=== PATIENT | female | born 1960 | race American Indian/Alaskan Native ===

== ENCOUNTER 2019-01-09 12:53 | Emergency (ER) | payer BC ==
--- NOTE | 2019-01-09 13:34 | Event Note ---
Date: 01/09/19 Medical screening examination: Pleasant 58-year-old female with reported history of dementia, sent to the ER for agitated behavior. Patient believes that she is in [place], [place]. She is disorganized and confused. She is not physically violent here in the ER. This is most likely an underlying manifestation of chronic dementia. Laboratory studies, EKG, urinalysis, noncontrast CT scan of the brain ordered, case management consultation is requested. Awake and alert to name, follows commands, protecting airway, hemodynamically stable, moving 4 extremities without difficulty. Vital Signs 01/09/19 13:26 Temperature 98.4 F Pulse Rate 81 Respiratory 14 Rate Blood Pressure 146/91 [Right] O2 Sat by Pulse 100 Oximetry
[2019-01-09] MEDS ORDERED: LORazepam 2 MG/ML VIAL IM ONE (14:23)
--- NOTE | 2019-01-09 16:18 | Emergency Department Report ---
ED Psych HPI - General Chief Complaint: Altered Mental Status Stated Complaint: PSYCH EVAL Time Seen by Provider: 01/09/19 14:34 Source: EMS Mode of arrival: Ambulatory Limitations: Altered Mental Status - History of Present Illness Initial Comments: 58-year-old female the past medical history of Alzheimer's dementia and arthritis presents to the hospital for mental health evaluation. Patient resides at a long-term it was sent for being violent and combative with staff. As per physician's medical evaluation for assisted living patient's mental he alth limitations include mild or moderate memory loss, since a direction, date and year deficits. Other than that she isn't dependent with her ADLs at her baseline. Patient denies any complaints currently. She knows she is in a hospital but does not know the year. She states she recently received a call from her spine who states that her sister is in the hospital. Patient is trying to visit her sister in the hospital however, she does not know what hospital sister is admitted to. Patient also states that another sister of hers almost a long-term and they have been having some conflict. Patient does come with a note written by Felipe Marroquin, the sister Orquidea Church and states that she gave the caretakers of relief with personal- penitentiary authority to send her to the hospital because she is disturbing of the patient's, tearing up her room, etc - Related Data Home Medications Medication Instructions Recorded Confirmed Last Taken Calcium 600 with Vit D Chew Tb 600 mg PO DAILY 01/09/19 01/09/19 Unknown Donepezil [Aricept] 10 mg PO QHS 01/09/19 01/09/19 Unknown Fish Oil 500 mg Softgel 1,000 mg PO BID 01/09/19 01/09/19 Unknown Hydroxyzine HCl [hydrOXYzine] 50 mg PO QHS 01/09/19 01/09/19 Unknown Meloxicam [Mobic] 15 mg PO DAILY 01/09/19 01/09/19 Unknown Memantine 5 mg PO BID 01/09/19 01/09/19 Unknown Venlafaxine [Effexor] 75 mg PO BID 01/09/19 01/09/19 Unknown Vitamin B-12 100 mcg PO DAILY 01/09/19 01/09/19 Unknown Allergies Allergy/AdvReac Type Severity Reaction Status Date / Time shellfish derived Allergy Unknown Verified 01/09/19 14:12 lactose AdvReac Diarrhea Verified 01/09/19 14:12 ED Review of Systems ROS: Stated complaint: PSYCH EVAL Other details as noted in HPI ED Past Medical Hx - Social History Smoking Status: Never Smoker Substance Use Type: None - Medications Home Medications: Home Medications Medication Instructions Recorded Confirmed Last Taken Type Calcium 600 with Vit D Chew Tb 600 mg PO DAILY 01/09/19 01/09/19 Unknown History Donepezil [Aricept] 10 mg PO QHS 01/09/19 01/09/19 Unknown History Fish Oil 500 mg Softgel 1,000 mg PO BID 01/09/19 01/09/19 Unknown History Hydroxyzine HCl [hydrOXYzine] 50 mg PO QHS 01/09/19 01/09/19 Unknown History Meloxicam [Mobic] 15 mg PO DAILY 01/09/19 01/09/19 Unknown History Memantine 5 mg PO BID 01/09/19 01/09/19 Unknown History Venlafaxine [Effexor] 75 mg PO BID 01/09/19 01/09/19 Unknown History Vitamin B-12 100 mcg PO DAILY 01/09/19 01/09/19 Unknown History ED Physical Exam - General Limitations: Altered Mental Status - Other Other exam information: General: No acute distress Head: Atraumatic Eyes: normal appearance ENT: Moist mucous membranes Neck: Normal appearance, no midline tenderness Chest: Clear to auscultation bilaterally CV: Regular rate and rhythm Abdomen: Soft, normal bowel sounds, nontender, nondistended, no rebound or guarding Back: Normal inspection Extremity: Normal inspection infection, full range of motion Neuro: Alert to self and knows she is in the hospital, no facial asymmetry, speech clear, no gross motor sensory deficit Psych: Delusions, confused, agitation Skin: No rash ED Course Vital Signs 01/09/19 01/09/19 13:26 19:26 Temperature 98.4 F 97.7 F Pulse Rate 81 83 Respiratory 14 18 Rate Blood Pressure 146/91 146/83 [Right] O2 Sat by Pulse 100 20 L Oximetry - Reevaluation(s) Reevaluation #1: 01/09/19 16:23 Patient is constantly wandering internal leave the department time to find her sister. She required seclusion and IM Ativan for her safety and cooperation ED Medical Decision Making - Lab Data Result diagrams: 01/09/19 16:19 01/09/19 16:19 Lab Results 01/09/19 01/09/19 01/09/19 Range/Units 16:19 16:19 16:19 WBC 5.8 (4.5-11.0) K/mm3 RBC 4.52 (3.65-5.03) M/mm3 Hgb 13.0 (10.1-14.3) gm/dl Hct 39.4 (30.3-42.9) % MCV 87 (79-97) fl MCH 29 (28-32) pg MCHC 33 (30-34) % RDW 13.4 (13.2-15.2) % Plt Count 246 (140-440) K/mm3 Sodium 139 (137-145) mmol/L Potassium 3.5 L (3.6-5.0) mmol/L Chloride 101.2 (98-107) mmol/L Carbon Dioxide 21 L (22-30) mmol/L Anion Gap 20 mmol/L BUN 16 (7-17) mg/dL Creatinine 1.0 (0.7-1.2) mg/dL Estimated GFR > 60 ml/min BUN/Creatinine Ratio 16 % Glucose 86 (65-100) mg/dL Calcium 10.1 (8.4-10.2) mg/dL Magnesium 2.10 (1.7-2.3) mg/dL Total Bilirubin 0.30 (0.1-1.2) mg/dL AST 22 (5-40) units/L ALT 13 (7-56) units/L Alkaline Phosphatase 40 (35-129) units/L Total Creatine Kinase 153 H (30-135) units/L Total Protein 7.9 (6.3-8.2) g/dL Albumin 4.6 (3.9-5) g/dL Albumin/Globulin Ratio 1.4 % TSH 3.240 (0.270-4.200) mlU/mL Urine Color (Yellow) Urine Turbidity (Clear) Urine pH (5.0-7.0) Ur Specific Thayer (1.003-1.030) Urine Protein (Negative) mg/dL Urine Glucose (UA) (Negative) mg/dL Urine Ketones (Negative) mg/dL Urine Blood (Negative) Urine Nitrite (Negative) Urine Bilirubin (Negative) Urine Urobilinogen (<2.0) mg/dL Ur Leukocyte Esterase (Negative) Urine WBC (Auto) (0.0-6.0) /HPF Urine RBC (Auto) (0.0-6.0) /HPF U Epithel Cells (Auto) (0-13.0) /HPF Urine Mucus /HPF Salicylates (2.8-20.0) mg/dL Urine Opiates Screen Urine Methadone Screen Acetaminophen (10.0-30.0) ug/mL Ur Barbiturates Screen Ur Phencyclidine Scrn Ur Amphetamines Screen U Benzodiazepines Scrn Urine Cocaine Screen U Marijuana (THC) Screen Plasma/Serum Alcohol (0-0.07) % 01/09/19 01/09/19 01/09/19 Range/Units 16:19 16:19 16:19 WBC (4.5-11.0) K/mm3 RBC (3.65-5.03) M/mm3 Hgb (10.1-14.3) gm/dl Hct (30.3-42.9) % MCV (79-97) fl MCH (28-32) pg MCHC (30-34) % RDW (13.2-15.2) % Plt Count (140-440) K/mm3 Sodium (137-145) mmol/L Potassium (3.6-5.0) mmol/L Chloride (98-107) mmol/L Carbon Dioxide (22-30) mmol/L Anion Gap mmol/L BUN (7-17) mg/dL Creatinine (0.7-1.2) mg/dL Estimated GFR ml/min BUN/Creatinine Ratio % Glucose (65-100) mg/dL Calcium (8.4-10.2) mg/dL Magnesium (1.7-2.3) mg/dL Total Bilirubin (0.1-1.2) mg/dL AST (5-40) units/L ALT (7-56) units/L Alkaline Phosphatase (35-129) units/L Total Creatine Kinase (30-135) units/L Total Protein (6.3-8.2) g/dL Albumin (3.9-5) g/dL Albumin/Globulin Ratio % TSH (0.270-4.200) mlU/mL Urine Color (Yellow) Urine Turbidity (Clear) Urine pH (5.0-7.0) Ur Specific Thayer (1.003-1.030) Urine Protein (Negative) mg/dL Urine Glucose (UA) (Negative) mg/dL Urine Ketones (Negative) mg/dL Urine Blood (Negative) Urine Nitrite (Negative) Urine Bilirubin (Negative) Urine Urobilinogen (<2.0) mg/dL Ur Leukocyte Esterase (Negative) Urine WBC (Auto) (0.0-6.0) /HPF Urine RBC (Auto) (0.0-6.0) /HPF U Epithel Cells (Auto) (0-13.0) /HPF Urine Mucus /HPF Salicylates < 0.3 L (2.8-20.0) mg/dL Urine Opiates Screen Urine Methadone Screen Acetaminophen < 5.0 L (10.0-30.0) ug/mL Ur Barbiturates Screen Ur Phencyclidine Scrn Ur Amphetamines Screen U Benzodiazepines Scrn Urine Cocaine Screen U Marijuana (THC) Screen Plasma/Serum Alcohol < 0.01 (0-0.07) % 01/09/19 01/09/19 Range/Units 22:37 22:37 WBC (4.5-11.0) K/mm3 RBC (3.65-5.03) M/mm3 Hgb (10.1-14.3) gm/dl Hct (30.3-42.9) % MCV (79-97) fl MCH (28-32) pg MCHC (30-34) % RDW (13.2-15.2) % Plt Count (140-440) K/mm3 Sodium (137-145) mmol/L Potassium (3.6-5.0) mmol/L Chloride (98-107) mmol/L Carbon Dioxide (22-30) mmol/L Anion Gap mmol/L BUN (7-17) mg/dL Creatinine (0.7-1.2) mg/dL Estimated GFR ml/min BUN/Creatinine Ratio % Glucose (65-100) mg/dL Calcium (8.4-10.2) mg/dL Magnesium (1.7-2.3) mg/dL Total Bilirubin (0.1-1.2) mg/dL AST (5-40) units/L ALT (7-56) units/L Alkaline Phosphatase (35-129) units/L Total Creatine Kinase (30-135) units/L Total Protein (6.3-8.2) g/dL Albumin (3.9-5) g/dL Albumin/Globulin Ratio % TSH (0.270-4.200) mlU/mL Urine Color Yellow (Yellow) Urine Turbidity Clear (Clear) Urine pH 6.0 (5.0-7.0) Ur Specific Thayer 1.012 (1.003-1.030) Urine Protein <15 mg/dl (Negative) mg/dL Urine Glucose (UA) Neg (Negative) mg/dL Urine Ketones Tr (Negative) mg/dL Urine Blood Neg (Negative) Urine Nitrite Neg (Negative) Urine Bilirubin Neg (Negative) Urine Urobilinogen < 2.0 (<2.0) mg/dL Ur Leukocyte Esterase Neg (Negative) Urine WBC (Auto) 1.0 (0.0-6.0) /HPF Urine RBC (Auto) 1.0 (0.0-6.0) /HPF U Epithel Cells (Auto) < 1.0 (0-13.0) /HPF Urine Mucus Few /HPF Salicylates (2.8-20.0) mg/dL Urine Opiates Screen Presumptive negative Urine Methadone Screen Presumptive negative Acetaminophen (10.0-30.0) ug/mL Ur Barbiturates Screen Presumptive negative Ur Phencyclidine Scrn Presumptive negative Ur Amphetamines Screen Presumptive negative U Benzodiazepines Scrn Presumptive negative Urine Cocaine Screen Presumptive negative U Marijuana (THC) Screen Presumptive negative Plasma/Serum Alcohol (0-0.07) % - EKG Data -: EKG Interpreted by Pr EKG shows normal: sinus rhythm, ST-T waves Rate: normal - Radiology Data Radiology results: report reviewed CT BRAIN: 01/09/2019 INDICATION / CLINICAL INFORMATION: ams. COMPARISON: None available. FINDINGS: BRAIN/INTRACRANIAL STRUCTURES: Unenhanced CT images of the brain demonstrate no evidence of acute intracranial abnormality. Ventricles and sulci are slightly prominent in size for a patient of this age, consistent with mild cerebral atrophy. There is no evidence of hemorrhage or mass. There are no abnormal extra-axial fluid collections. EXTRACRANIAL STRUCTURES: Unremarkable. IMPRESSION: No acute abnormality. - Medical Decision Making Patient was not cooperative in the ED. Repeatedly trying to leave the department. Noncompliant with CT head for medical clearance. Patient required IM Ativan followed by Gael and noted to obtain necessary studies for medical clearance. Patient was initially placed in seclusion due to behavior but seclusion was discontinued once sedated on meds. ED evaluation unremarkable for acute medical illness. Patient will require psych evaluation for stabilization of her dementia. - Differential Diagnosis dementia, delirium, encephalopathy Critical Care Time: No Critical care attestation.: If time is entered above; I have spent that time in minutes in the direct care of this critically ill patient, excluding procedure time. ED Disposition Clinical Impression: Dementia, Combative behavior, Medical clearance for psychiatric admission Disposition: [id number] PSY HOSP/PSY UNIT Is pt being admited?: No Condition: Stable Time of Disposition: 23:51
[2019-01-09 16:48] LABS: Hematocrit 39.4 % (30.3-42.9); Mean Corpuscular HGB Conc 33 % (30-34); Mean Corpuscular Volume 87 fl (79-97); Platelet Count 246 K/mm3 (140-440); Red Blood Count 4.52 M/mm3 (3.65-5.03); Red Cell Distribution Width 13.4 % (13.2-15.2)
[2019-01-09 16:58] LABS: Alanine Aminotransferase 13 units/L (7-56); Albumin 4.6 g/dL (3.9-5); BUN/Creatinine Ratio 16; Blood Urea Nitrogen 16 mg/dL (7-17); Calcium 10.1 mg/dL (8.4-10.2); Hemolysis Index 22
[2019-01-09] MEDS ORDERED: ZIPRASIDONE MESYLATE 20 MG VIAL IM ONE ×2 (17:12→17:15)
[2019-01-09] MEDS ORDERED: WATER FOR INJ Sterile (PF) 10 ML ONE (17:15)
--- NOTE | 2019-01-09 20:05 | Cat Scan Report ---
CT BRAIN: 01/09/2019 INDICATION / CLINICAL INFORMATION: ams. COMPARISON: None available. FINDINGS: BRAIN/INTRACRANIAL STRUCTURES: Unenhanced CT images of the brain demonstrate no evidence of acute int racranial abnormality. Ventricles and sulci are slightly prominent in size for a patient of this age, consistent with mild c erebral atrophy. There is no evidence of hemorrhage or mass. There are no abnormal extra-axial fluid collections. EXTRACRANIAL STRUCTURES: Unremarkable. IMPRESSION: No acute abnormality. All CT scans at this location are performed using dose reduction to ALARA by means of automated expos ure control. Signer Name: Benjamin Maldonado MD Signed: 01/09/2019 8:01 PM Workstation Name: [id number]
[2019-01-09 23:25] LABS: Bilirubin,Urine NEG (Negative); Blood,Urine NEG (Negative); Color,Urine Yellow (Yellow); Mucus,Urine FEW /HPF; Protein,Urine <15 mg/dL mg/dL (Negative); Urobilinogen,Urine < 2.0 mg/dL (<2.0)
[2019-01-09 23:48] LABS: Amphetamine Screen,Urine PRESUMPTIVE NEGATIVE; Benzodiazepines Screen,Urine PRESUMPTIVE NEGATIVE; Cannabinoid Screen,Urine PRESUMPTIVE NEGATIVE; Cocaine Screen,Urine PRESUMPTIVE NEGATIVE; Methadone Screen,Urine PRESUMPTIVE NEGATIVE; Opiate Screen,Urine PRESUMPTIVE NEGATIVE
[2019-01-11 08:23] VITALS: BP 169/80
--- NOTE | 2019-01-11 09:41 | Consultation ---
History of Present Illness - Reason for Consult Consult date: 01/11/19 Reason for consult: Mental Health Evaluation Requesting physician: ARLETTE MOE - Chief Complaint Chief complaint: "Who are you" - History of Present Psychiatric Illness 48 y.o. AA female who presented to the ER for aggressive/combative behavior. Today the patient was calm, but confused during the assessment. She needed constant redirection to keep her on topic. Her answers to questions were not logical. The patient appears to be responding to some type of stimuli. Per the staff, the patient attempt to wander throughout the ER. The staff denies any behavior disturbances by the patient since her arrival to the ER. No gestures of SI/HI's. Medications and Allergies Allergies Allergy/AdvReac Type Severity Reaction Status Date / Time shellfish derived Allergy Unknown Verified 01/09/19 14:12 lactose AdvReac Diarrhea Verified 01/09/19 14:12 Home Medications Medication Instructions Recorded Confirmed Last Taken Type Calcium 600 with Vit D Chew Tb 600 mg PO DAILY 01/09/19 01/09/19 Unknown History Donepezil [Aricept] 10 mg PO QHS 01/09/19 01/09/19 Unknown History Fish Oil 500 mg Softgel 1,000 mg PO BID 01/09/19 01/09/19 Unknown History Hydroxyzine HCl [hydrOXYzine] 50 mg PO QHS 01/09/19 01/09/19 Unknown History Meloxicam [Mobic] 15 mg PO DAILY 01/09/19 01/09/19 Unknown History Memantine 5 mg PO BID 01/09/19 01/09/19 Unknown History Venlafaxine [Effexor] 75 mg PO BID 01/09/19 01/09/19 Unknown History Vitamin B-12 100 mcg PO DAILY 01/09/19 01/09/19 Unknown History Past psychiatric history - Past Medical History Past Medical History: other (Unable to obtain ) Past Surgical History: Other (Unable to obtain ) - past Psychiatric treatment and history psychiatric treatment history: Hx of dementia per the record. Unable to obtain a fam psy hx. - Social History Social history: other (Reside at a personal car home) Mental Status Exam - Vital signs Last Vital Signs Temp 97.2 F L 01/11/19 08:00 Pulse 96 H 01/11/19 08:00 Resp 18 01/11/19 08:00 BP 169/80 01/11/19 08:00 Pulse Ox 96 01/11/19 08:00 - Exam Narrative exam: MSE: Appearance: calm Behavior: poor eye contact Speech: regular rate and tone Mood: "okay" Affect: congruent to mood Thought Process: tangential Thought Content: no gestures of SI/Hi's, responding to some type of stimuli Motor Activity: wandering Cognition: alert, but confused Insight: limited Judgment: poor Results Result Diagrams: 01/09/19 16:19 01/09/19 16:19 All other labs normal. Assessment and Plan Assessment and plan: Impression: Unspecified Neuro Cog DO. Today the patient was confused during the assessment. The patient cannot take care of herself. DDx: Dementia, Unspecified Psychosis Recommendation/Plan: Continue 1013. Recommend Delirium precautions below: 1. Frequently reorient patient and involve him/her in their care (simple explanations of procedures, tests, medications). 2. Lights on and shades open during daytime hours. 3. Write date and goals of care in a visible place. 4. Try to avoid unnecessary interruptions to sleep during nighttime hours. 5. Obtain glasses, hearing aids from home if patient uses these at baseline. 6. Avoid medications that may exacerbate delirium (especially narcotics, benzodiazepines, barbiturates, ambien, lunesta, and medications with excessive anticholinergic properties). Dispo: The patient was referred to inpatient psy services. Staffed with Dr Leonor Bryant.
== END 2019-01-11 14:00 ==
LOC: EEVIPCON 12:53 → ED 12:53
DX: R29.818 Other symptoms and signs involving the nervous system (principal); F03.90 Unspecified dementia, unspecified severity, without behavioral disturbance, psychotic disturbance, mood disturbance, and anxiety; Z79.899 Other long term (current) drug therapy; Z91.013 Allergy to seafood
CPT/HCPCS: 36415; 70450; 80053; 80307; 81001; 82550; 83735; 84443; 85027; 93005; 93010; 96372; 99285; J2060; J3486; 80320; G0480